=== PATIENT | male | born 1950 | race Two or more races ===

== ENCOUNTER 2021-03-12 13:28 | Emergency (ER) | payer OTHER ==
[~2021-03-12] VITALS: Ht 170.2 cm; Wt 82.6 kg
[2021-03-12] MEDS ORDERED: BIKTARVY 50-201 EACH (13:51)
[2021-03-12] MEDS ORDERED: LIPITOR20 MG (13:51)
[2021-03-12] MEDS ORDERED: COZAAR25 MG PO (13:51)
[2021-03-12] MEDS ORDERED: GRALISE600 MG (13:52)
[2021-03-12] MEDS ORDERED: NORFLEX100MG PO (16:09)
[2021-03-12] MEDS ORDERED: KETO10TA2 PO (16:10)
== END 2021-03-12 16:21 | disposition home or self-care (01) ==
LOC: ER 13:28
DX: M25.562 Pain in left knee (principal); M54.59 Other low back pain; M79.605 Pain in left leg